=== PATIENT | female | born 2000 | race African-American/Black ===

== ENCOUNTER 2024-03-24 10:10 | Emergency (ER) | payer OTHER, SELFPAY ==
[2024-03-24] VITALS (9 sets, daily range): BP systolic 105–126; BP diastolic 60–64; PULSE 80–120; RESP 16; TEMP 36.9; O2SAT 85–100; BMI 18.3
[2024-03-24 11:24] LABS: Add Manual Diff / Slide Review NO; Basophils Absolute Auto 0 /uL (0-100); Basophils Percent Auto 0.7 % (0-2); Eosinophils Absolute Auto 0 /uL (0-450); Eosinophils Percent Auto 0.8 % (2-4); Hematocrit 39.1 % (36-46); Hemoglobin 13.1 g/dL (12.0-16.0); Lymphocytes Absolute Auto 1200 /uL (1100-4500); Lymphocytes Percent Auto 24.3 % (25-40); Mean Corpuscular HGB Conc 33.5 % (30-36); Mean Corpuscular Hemoglobin 27.2 PG (26-34); Mean Corpuscular Volume 81.2 fL (80-100); Monocytes Absolute Auto 500 /uL (0-900); Neutrophils Absolute Auto 3200 /uL (1500-7000); Neutrophils Percent Auto 64.2 % (50-75); Platelet Count 284 X10^3/uL (150-400); Red Blood Cell Count 4.82 X10^6/uL (4.0-5.2); Red Cell Distribution Width 12.8 % (11.6-14.8)
[2024-03-24 11:32] LABS: Pregnancy Test Serum,Qual Positive (Negative)
[2024-03-24] MEDS: ONDANSETRON 4 MG/2 ML INJ IV (11:33)
[2024-03-24] MEDS: SODIUM CHLORIDE 0.9% 1,000 ML 1000 ML IV (11:33)
--- NOTE | 2024-03-24 11:33 | DI.US.S_ITS ---
PROCEDURE: US OB <= 14 WEEKS FETUS INDICATIONS: 6 weeks ega with vomiting OUTSIDE/PRIOR DATING DATA: Last menstrual period (LMP): February 10, 2024. LMP-based estimated date of delivery (TIAGO): November 16, 2024. First dating scan (date and location): March 24, 2024. Estimated date of delivery (TIAGO) from first dating scan: November 16, 2024. The calculations are made using the ultrasound TIAGO of November 16, 2024. TECHNIQUE: Real-time scanning was performed of the fetus and maternal pelvic organs, with image documentation. Endovaginal scanning was also performed to better visualize the fetus and maternal ovaries. COMPARISON: None. FINDINGS: Embryo: Single living intrauterine . Gestational sac, yolk sac and pole identified. [place]-rump length measures 0.42 centimeters. Heart rate: 112 beats per minute Maternal organs: There is 3.7 x 3.3 x 3.2 centimeters simple right ovarian cyst. There is a 1.2 x 2.3 x 1.8 centimeter complex right ovarian cyst with internal debris. IMPRESSION: Single living intrauterine with ultrasound estimated gestational age of 6 weeks 1 day corresponding to ultrasound TIAGO of November 16, 2024. 3.7 x 3.3 x 3.2 simple right ovarian cyst and 1.2 x 2.3 x 1.8 centimeter complex right ovarian cyst. Recommend follow-up ultrasound in 6 weeks to ensure resolution of the finding. Dictated by: Leann Rodriguez MD, PhD on 03/24/2024 at 12:59 Approved by: Leann Rodriguez MD, PhD on 03/24/2024 at 13:03
[2024-03-24 11:34] LABS: Alanine Aminotransferase 29 IU/L (<35); Albumin 4.5 g/dL (3.5-5.0); Albumin Globulin Ratio 1.1 (1.0-2.8); Alkaline Phosphatase 50 U/L (38-126); Aspartate Aminotransferase 27 IU/L (14-36); BUN Creatinine Ratio 10.7 (6-22); Bilirubin Total 1.2 mg/dL (0.2-1.3); Blood Urea Nitrogen 6 mg/dL (7-17); Calcium 9.5 mg/dL (8.4-10.2); Carbon Dioxide 24 mmol/L (22-32); Chloride 104 mmol/L (98-107); Estimated Glomerular Filt Rate > 60 mL/min (>60); Glucose 87 mg/dL (70-100); HEMOLYSIS < 15 (0-50); Lipase 65 U/L (23-300); Potassium 3.6 mmol/L (3.4-5.1); Sodium 136 mmol/L (137-145); Total Protein 8.5 g/dL (6.3-8.2)
--- NOTE | 2024-03-24 11:39 | ED_ITS ---
HPI - Nausea/Vomiting/Diarrhea General Chief complaint: Nausea/Vomiting/Diarrhea Stated complaint: can't keep anything down for last 3 days Time Seen by Provider: 03/24/24 10:32 Source: patient Mode of arrival: Ambulatory History of Present Illness HPI Narrative: Patient is a 24-year-old female. at approximately 6 weeks EGA who is here for evaluation of vomiting for the past 3 days. No vaginal bleeding. No vaginal discharge. No abdominal pain. No diarrhea. No recent travel. No recent antibiotics. No fevers. No chest pain. No shortness of breath. Has not tried anything for the symptoms prior to arrival. Related Data Home Medications Medication Instructions Recorded Confirmed cholecalciferol (vitamin D3) 50 50 mcg PO DAILY 03/10/24 03/10/24 mcg (2,000 unit) capsule omega 3-ilw-pnl-fish oil 1,200 mg cap PO 03/10/24 03/10/24 (144 mg-216 mg) capsule (Fish Oil) vitamin-ferrous sulfate tab PO 03/10/24 03/10/24 27 mg iron-folic acid 0.8 mg tablet Previous Rx's Medication Instructions Recorded ondansetron 4 mg disintegrating 4 mg PO Q6H PRN nausea and 03/24/24 tablet vomiting #20 tabs Allergies Allergy/AdvReac Type Severity Reaction Status Date / Time No Known Drug Allergies Allergy Unverified 03/10/24 09:34 Review of Systems Review of Systems Narrative: See HPI Patient History Surgical History (Updated 03/10/24 @ 09:37 by Erica Hager RN) [place] teeth extracted (~2022) Family History (Updated 03/10/24 @ 09:38 by Erica Hager RN) Mother Thyroid disorder Grandfather Diabetes mellitus Grandmother Hypertension Hyperlipidemia Diabetes mellitus Social History marital status: number of children: 0 household members: spouse lives independently: Yes caregiver/support person: No housing: apartment pets and animals: Yes (cat, aware of precautions) education level: college 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: Yes (discussed) special phong needs: No travel history: recent (domestic only) seatbelt use: always water heater temp set < 120 deg: Yes working smoke detector in home: Yes fire extinguisher in home: Yes carbon monox detector in home: Yes firearms in home: Yes firearms unloaded and locked: Yes do you feel safe at home: Yes Smoking Status: Never smoker second hand exposure: No alcohol intake: former (very occasionally when not ) substance use type: does not use during the past year weight has: remained stable well-balanced diet: about half the time daily servings fruits/ve-4 caffeine: Yes (aware of 200mg limit) Type(s) of exercise: none Smoking Status: Never smoker Exam Initial Vital Signs Initial Vital Signs: Vital Signs Temperature 98.4 F 03/24/24 10:51 Pulse Rate 89 03/24/24 10:51 Respiratory Rate 16 03/24/24 10:51 Blood Pressure 126/64 03/24/24 10:51 Pulse Oximetry 100 03/24/24 10:51 Oxygen Delivery Method Room Air 03/24/24 10:51 Const General: cooperative, comfortable and No ill appearing HENMT Head: normal to inspection and normocephalic Resp Effort & Inspection: normal respiratory effort Auscultation: clear to auscultation bilaterally Cardio Rate: regular rate Rhythm: regular rhythm GI Inspection: normal to inspection and non-distended Skin General: no rashes or lesions noted Neuro General: patient alert and patient awake Course Orders Ordered: ED Orders 03/24/24 11:15 ABO RH Type Stat Complete Blood Count AUTO DIFF Stat Comprehensive Metabolic Panel Stat HCG Quantitative /Beta subunit Stat Lipase Stat Test Serum,Qual Stat 03/24/24 11:33 US OB <= 14 weeks fetus Stat Discontinued Medications Sodium Chloride (Normal Saline 0.9%) 1,000 mls @ 1,000 mls/hr IV BOLUS ONE Stop: 03/24/24 11:32 Last Infusion: 03/24/24 13:16 Dose: Infused Documented By: Admin: 03/24/24 11:33 Dose: 1,000 mls/hr Documented By: BHARATI Ondansetron HCl (Ondansetron 4 Mg/2 Ml Inj) 4 mg IV NOW ONE Stop: 03/24/24 10:34 Last Admin: 03/24/24 11:33 Dose: 4 mg Documented By: BHARATI Vital Signs Vital signs: Vital Signs - 8 hr 03/24/24 10:51 03/24/24 11:38 03/24/24 11:39 Temperature 98.4 F Pulse Rate 89 80 83 Respiratory Rate 16 Blood Pressure 126/64 Pulse Oximetry 100 97 100 Oxygen Delivery Method Room Air 03/24/24 11:39 03/24/24 11:45 03/24/24 11:45 Temperature Pulse Rate 100 H Respiratory Rate Blood Pressure 110/64 108/60 Pulse Oximetry 100 Oxygen Delivery Method 03/24/24 12:00 03/24/24 12:00 03/24/24 12:15 Temperature Pulse Rate 82 100 H Respiratory Rate Blood Pressure 105/63 Pulse Oximetry 100 96 Oxygen Delivery Method 03/24/24 12:15 03/24/24 12:30 Temperature Pulse Rate 120 H Respiratory Rate Blood Pressure 107/64 Pulse Oximetry 97 Oxygen Delivery Method MDM - Nausea/Vomiting/Diarrhea Lab Data Attestation: I reviewed the patient's lab results. 03/24/24 11:15 03/24/24 11:15 Labs: Lab Results 03/24/24 Range/Units 11:15 WBC 5.0 (4.5-11.0) X10^3/uL RBC 4.82 (4.0-5.2) X10^6/uL Hgb 13.1 (12.0-16.0) g/dL Hct 39.1 (36-46) % MCV 81.2 (80-100) fL MCH 27.2 (26-34) PG MCHC 33.5 (30-36) % RDW 12.8 (11.6-14.8) % Plt Count 284 (150-400) X10^3/uL Neut % (Auto) 64.2 (50-75) % Lymph % (Auto) 24.3 L (25-40) % [place]icher % (Auto) 10.0 (3-14) % Eos % (Auto) 0.8 L (2-4) % Baso % (Auto) 0.7 (0-2) % Neut # (Auto) 3200 (6877-9110) /uL Lymph # (Auto) 1200 (7819-2708) /uL Schleicher # (Auto) 500 (0-900) /uL Eos # (Auto) 0 (0-450) /uL Baso # (Auto) 0 (0-100) /uL Sodium 136 L (137-145) mmol/L Potassium 3.6 (3.4-5.1) mmol/L Chloride 104 (98-107) mmol/L Carbon Dioxide 24 (22-32) mmol/L BUN 6 L (7-17) mg/dL Creatinine 0.56 (0.52-1.04) mg/dL Estimated GFR > 60 (>60) mL/min BUN/Creatinine Ratio 10.7 (6-22) Glucose 87 (70-100) mg/dL Calcium 9.5 (8.4-10.2) mg/dL Total Bilirubin 1.2 (0.2-1.3) mg/dL AST 27 (14-36) IU/L ALT 29 (<35) IU/L Alkaline Phosphatase 50 (38-126) U/L Total Protein 8.5 H (6.3-8.2) g/dL Albumin 4.5 (3.5-5.0) g/dL Globulin 4.0 (1.7-4.1) g/dL Albumin/Globulin Ratio 1.1 (1.0-2.8) Lipase 65 (23-300) U/L HCG, Quant 10074 mIU/mL Serum , Qual Positive H (Negative) Blood Type A Positive Imaging Data US - OB: Radiologist's Impression: PROCEDURE: US OB <= 14 WEEKS FETUS INDICATIONS: 6 weeks ega with vomiting OUTSIDE/PRIOR DATING DATA: Last menstrual period (LMP): February 10, 2024. LMP-based estimated date of delivery (TIAGO): November 16, 2024. First dating scan (date and location): March 24, 2024. Estimated date of delivery (TIAGO) from first dating scan: November 16, 2024. The calculations are made using the ultrasound TIAGO of November 16, 2024. TECHNIQUE: Real-time scanning was performed of the fetus and maternal pelvic organs, with image documentation. Endovaginal scanning was also performed to better visualize the fetus and maternal ovaries. COMPARISON: None. FINDINGS: Embryo: Single living intrauterine . Gestational sac, yolk sac and pole identified. [place]-rump length measures 0.42 centimeters. Heart rate: 112 beats per minute Maternal organs: There is 3.7 x 3.3 x 3.2 centimeters simple right ovarian cyst. There is a 1.2 x 2.3 x 1.8 centimeter complex right ovarian cyst with internal debris. IMPRESSION: Single living intrauterine with ultrasound estimated gestational age of 6 weeks 1 day corresponding to ultrasound TIAGO of November 16, 2024. 3.7 x 3.3 x 3.2 simple right ovarian cyst and 1.2 x 2.3 x 1.8 centimeter complex right ovarian cyst. Recommend follow-up ultrasound in 6 weeks to ensure resolution of the finding. MDM Narrative Medical decision making narrative: Ultrasound shows single intrauterine at 6 weeks which is what the patient thinks that she was at. She was feeling better after Zofran and fluids. Will send home with a prescription for Zofran. She was given return precautions. She expressed understanding and agreement. Discharge Plan Departure Patient Disposition: Home Clinical Impression: Nausea and vomiting during Instructions: Nausea of (Alternative Therapy), Nausea and Vomiting- Adult Activity Restrictions/Additional Instructions: Be sure that you are keeping all of your scheduled medical appointments. Continue with your vitamins. Recommend a bland diet that you can advance as tolerated. Be sure that you were increasing your fluid intake. Return to the emergency department for new or worsening symptoms. Prescriptions: New ondansetron 4 mg tablet,disintegrating 4 mg PO Q6H PRN (Reason: nausea and vomiting) Qty: 20 0RF No Action vit-ferrous sulfat-FA 27 mg iron- 0.8 mg tablet PO cholecalciferol (vitamin D3) 50 mcg (2,000 unit) capsule 50 mcg PO DAILY omega 0-pbh-vzu-fish oil [Fish Oil] 1,200 (144-216) mg capsule PO Referrals: Norah Davis FNP-C [Primary Care Provider] - Stand Alone Forms: Patient Portal/API
[2024-03-24 12:26] LABS: HCG Quantitative /Beta subunit 45025 mIU/mL
== END 2024-03-24 13:30 | disposition home or self-care (01) ==
PROVIDERS: Emergency Provider Emergency Medicine; PCP Nurse Practitioner Family
DX: O21.9 Vomiting of pregnancy, unspecified (principal); Z3A.01 Less than 8 weeks gestation of pregnancy
CPT/HCPCS: 36415; 76801; 80053; 83690; 84702; 84703; 85025; 86900; 86901; 96361; 96374; 99284; J2405

== ENCOUNTER → 2024-04-27 14:56 | Outpatient (CLI) | payer OTHER, SELFPAY ==
[2024-04-27 15:40] LABS: Add Manual Diff / Slide Review NO; Basophils Absolute Auto 0 /uL (0-100); Basophils Percent Auto 0.6 % (0-2); Eosinophils Absolute Auto 100 /uL (0-450); Eosinophils Percent Auto 1.6 % (2-4); Hematocrit 36.5 % (36-46); Hemoglobin 12.1 g/dL (12.0-16.0); Lymphocytes Absolute Auto 1400 /uL (1100-4500); Lymphocytes Percent Auto 26.1 % (25-40); Mean Corpuscular HGB Conc 33.3 % (30-36); Mean Corpuscular Hemoglobin 27.5 PG (26-34); Mean Corpuscular Volume 82.6 fL (80-100); Monocytes Absolute Auto 700 /uL (0-900); Monocytes Percent Auto 12.6 % (3-14); Neutrophils Absolute Auto 3200 /uL (1500-7000); Neutrophils Percent Auto 59.1 % (50-75); Platelet Count 280 X10^3/uL (150-400); Red Blood Cell Count 4.41 X10^6/uL (4.0-5.2); Red Cell Distribution Width 12.5 % (11.6-14.8); White Blood Cell Count 5.4 X10^3/uL (4.5-11.0)
[2024-04-27 17:47] LABS: Appearance Urine UA CLEAR; Bilirubin Urine UA NEGATIVE (NEGATIVE); Color Urine UA YELLOW; Glucose Urine UA NEGATIVE (Negative); Ketones Urine UA NEGATIVE (NEGATIVE); Leukocyte Esterase Urine UA TRACE (NEGATIVE); Nitrite Urine UA NEGATIVE (Negative); Occult Blood Urine UA NEGATIVE (Negative); Protein Urine UA NEGATIVE (Negative); Specific Gravity Urine UA 1.025 (1.000-1.035); Urobilinogen Urine UA 0.2 E.U./dL (0.2)
[2024-04-27 19:13] LABS: Bacteria Urine Few (2-10); RBC Urine None Seen (0-5/HPF); Squamous Epithelial Cell Urine 1-5 /HPF (0-5/HPF); Urine Volume 10mL (spun); WBC Urine 5-10/HPF (0-5/HPF)
[2024-04-28 21:32] LABS: Hepatitis B Surface Antigen NEGATIVE s/c (NEGATIVE); Rubella Antibody IgG 23.3 IU/mL (>15)
[2024-04-28 21:49] LABS: HIV 1 & 2 Ab/Ag 4th Gen Combo NEGATIVE (NEGATIVE); Hep C Virus Ab w/Reflex Quant NEGATIVE s/c (NEGATIVE)
[2024-04-29 06:06] LABS: RPR Screen Non Reactive (Non Reactive)
[2024-04-29 08:36] LABS: Varicella IgG Antibody 227 index (Immune >165)
== END ==
LOC: LAB 14:57
PROVIDERS: PCP Nurse Practitioner Family; Referring Provider Family Medicine; Visit Provider Family Medicine
DX: Z34.00 Encounter for supervision of normal first pregnancy, unspecified trimester (principal)
CPT/HCPCS: 36415; 80055; 81003; 81015; 86787; 86803; 86850; 86900; 86901; 87086; 87389

== ENCOUNTER → 2024-06-10 10:43 | Outpatient (CLI) | payer OTHER, SELFPAY ==
[2024-06-13 13:41] LABS: AFP, Serum 51.3 ng/mL (.); Estriol, Free 0.84 ng/mL (.); Inhibin A, Dimeric 147.29 pg/mL (.); Inhibin A, MoM 0.75 (.); Maternal Ethnicity Black (.); Maternal Weight 112 lbs (.); Number of Fetuses No (.); OSBR Risk 1 IN 10000 (.); Results Report (.); Test Results *Screen Negative* (.); hCG, MoM 0.31 (.); hCG, Serum 12260 mIU/mL (.)
== END ==
PROVIDERS: PCP Nurse Practitioner Family; Referring Provider Family Medicine; Visit Provider Family Medicine
DX: Z34.02 Encounter for supervision of normal first pregnancy, second trimester (principal); Z3A.17 17 weeks gestation of pregnancy
CPT/HCPCS: 36415; 82105; 82677; 84702; 86336

== ENCOUNTER → 2024-06-22 16:16 | Outpatient (CLI) | payer OTHER, SELFPAY | PROVIDERS: PCP Nurse Practitioner Family; Referring Provider Internal Medicine; Visit Provider Internal Medicine | DX: Z23 Encounter for immunization (principal) | CPT/HCPCS: 90471; 90656 ==

== ENCOUNTER → 2024-06-23 10:44 | Outpatient (CLI) | payer OTHER, SELFPAY ==
--- NOTE | 2024-06-23 10:45 | DI.US.S_ITS ---
PROCEDURE: US OB >= 14 WEEKS FETUS INDICATIONS: growth OUTSIDE/PRIOR DATING DATA: Last menstrual period (LMP): 02/10/2024 LMP-based estimated date of delivery (TIAGO): 11/16/2024 First dating scan (date and location): 03/24/2024 Estimated date of delivery (TIAGO) from first dating scan: 11/16/2024 The calculations are made using the TIAGO of 11/16/2024 TECHNIQUE: Real-time scanning was performed of the fetus, with image documentation and biometric measurements. Endovaginal scanning: Not performed COMPARISON: [facility], OB <= 14 WEEKS FETUS, 03/24/2024, 12:19. FINDINGS: General: A single living intrauterine gestation is present. Presentation: Breech Placenta: Placental position is anterior, without previa. Amniotic fluid index: 11.4 cm, normal range is 5-24 cm. Single deepest vertical pocket is 3.4 cm. heart rate: 150 beats per minute. Maternal cervical canal: 3.2 cm long. Normal lower limit is 2.5 cm. biometrics: Biparietal diameter: 4.4 cm, 19 weeks 3 days Head circumference: 16.4 cm, 19 weeks 1 day Abdominal circumference: 14.3 cm, 19 weeks 5 days Femur length: 3.1 cm, 19 weeks 4 days Clinically estimated gestational age: 19 weeks 1 day Composite gestational age from present scan: 19 weeks 3 days Estimated weight and percentile: 299 g, 70th percentile Anatomic survey: Neuro: Ventricles are non-dilated at less than 10 mm. Cisterna magna is normal at 3-11 mm. Cerebellum is normal in size and morphology. Nuchal skin fold: Normal at less than 6 mm between 14-21 weeks gestational age. Face: Nose and lips, facial profile are normal. Spine: No evidence for spina bifida. Heart: 4-chambered heart is present, with normal ventricular outflow tracts. Diaphragm: Diaphragm is intact. Stomach: Left-sided stomach is present. Kidneys: No hydronephrosis. Normal is less than 5 mm in 2nd trimester, less than 7 mm in 3rd trimester. Cord: 3-vessel cord has orthotopic insertion. Bladder: Normal in size. Extremities: All 4 extremities identified. IMPRESSION: 1. Single live intrauterine with appropriate interval growth. 2. anatomic survey is within normal limits. Approved by: Breezy Bonilla M.D. on 06/23/2024 at 19:53
== END ==
PROVIDERS: PCP Nurse Practitioner Family; Referring Provider Family Medicine; Visit Provider Family Medicine
DX: Z34.02 Encounter for supervision of normal first pregnancy, second trimester (principal); Z3A.19 19 weeks gestation of pregnancy
CPT/HCPCS: 76811

== ENCOUNTER 2024-07-22 08:14 | Outpatient (CLI) | payer OTHER, SELFPAY ==
[2024-07-22 08:46] LABS: Appearance Urine UA CLEAR; Bilirubin Urine UA NEGATIVE (NEGATIVE); Color Urine UA YELLOW; Glucose Urine UA NEGATIVE (Negative); Ketones Urine UA NEGATIVE (NEGATIVE); Leukocyte Esterase Urine UA 1+ (NEGATIVE); Nitrite Urine UA NEGATIVE (Negative); Occult Blood Urine UA NEGATIVE (Negative); Protein Urine UA NEGATIVE (Negative); Specific Gravity Urine UA 1.015 (1.000-1.035); Urobilinogen Urine UA 0.2 E.U./dL (0.2)
[2024-07-22 08:50] LABS: pH Urine UA 6.5 (4.5-8.0)
[2024-07-22 08:58] LABS: RBC Urine 0-1/HPF (0-5/HPF); Urine Volume 10mL (spun); WBC Urine 5-10/HPF (0-5/HPF)
[2024-07-22 08:59] LABS: Bacteria Urine Few (2-10); Culture Indicated Urine Cult Not Indicated; Squamous Epithelial Cell Urine 10-30 /HPF (0-5/HPF)
--- NOTE | 2024-07-22 08:59 | DI.US.S_ITS ---
PROCEDURE: US RENAL COMPLETE INDICATIONS: right flank pain, r/o stone TECHNIQUE: Real-time scanning was performed of the kidneys and bladder, with image documentation. COMPARISON: None. FINDINGS: Kidneys: Kidneys are normal in size. Right kidney measures 11.4 cm long; left kidney measures 10.5 cm long. Right renal cortical thickness is 2.1 cm; left renal cortical thickness is 1.9 cm. Renal cortical echotexture is normal. Lgbi-[id number] right hydronephrosis. Minimal left pelviectasis. No intrarenal calculi on either side. No perinephric fluid collections. No suspicious solid mass lesions. Bladder: Pre-void bladder volume is 18 mL. Post-void residual was not obtained. Pre-void images demonstrate no intraluminal masses or stones. On pre-void images, neither ureteral jets are noted with color Doppler interrogation. (Of note, ureteral jets may not be detectable in up to 25% of cases due to insufficient differences in specific gravity between ureteral and bladder urine). Miscellaneous: No free pelvic fluid. Living intrauterine gestation with a heart rate of 148 beats per minute. IMPRESSION: [id number] right hydronephrosis is most likely due to gravid uterus. An obstructing ureteral calculus cannot be excluded. Dictated by: Allison Winkler M.D. on 07/22/2024 at 11:50 Approved by: Allison Winkler M.D. on 07/22/2024 at 11:53
[2024-07-22] MEDS: ONDANSETRON 4 MG ODT SL (09:53)
[2024-07-22] MEDS: MORPHINE 4 MG/ML INJ IM (09:53)
== END 2024-07-22 10:00 | disposition home or self-care (01) ==
LOC: LABOR 09:44 → OB 07-25 08:47
PROVIDERS: PCP Nurse Practitioner Family; Referring Provider Family Medicine; Visit Provider Family Medicine
DX: O26.892 Other specified pregnancy related conditions, second trimester (principal); R10.9 Unspecified abdominal pain; Z3A.23 23 weeks gestation of pregnancy
CPT/HCPCS: 59025; 59050; 76770; 81001; 96372; G0378; G0379; J2270

== ENCOUNTER → 2024-09-01 12:01 | Outpatient (CLI) | payer OTHER, SELFPAY ==
[2024-09-01 13:44] LABS: Add Manual Diff / Slide Review NO; Basophils Absolute Auto 0 /uL (0-100); Basophils Percent Auto 0.4 % (0-2); Eosinophils Absolute Auto 100 /uL (0-450); Eosinophils Percent Auto 0.8 % (2-4); Hematocrit 28.8 % (36-46); Hemoglobin 9.5 g/dL (12.0-16.0); Lymphocytes Absolute Auto 1300 /uL (1100-4500); Lymphocytes Percent Auto 18.7 % (25-40); Mean Corpuscular HGB Conc 33.1 % (30-36); Mean Corpuscular Hemoglobin 27.8 PG (26-34); Mean Corpuscular Volume 84.1 fL (80-100); Monocytes Absolute Auto 800 /uL (0-900); Monocytes Percent Auto 11.8 % (3-14); Neutrophils Absolute Auto 4800 /uL (1500-7000); Neutrophils Percent Auto 68.3 % (50-75); Platelet Count 268 X10^3/uL (150-400); Red Blood Cell Count 3.42 X10^6/uL (4.0-5.2); Red Cell Distribution Width 12.3 % (11.6-14.8)
[2024-09-01 14:08] LABS: GTT (PREG) 1 Hour PP 50gm Dose 89 mg/dL (76-139)
== END ==
LOC: LAB 12:02
PROVIDERS: PCP Nurse Practitioner Family; Referring Provider Family Medicine; Visit Provider Family Medicine
DX: Z34.00 Encounter for supervision of normal first pregnancy, unspecified trimester (principal)
CPT/HCPCS: 36415; 82950; 85025

== ENCOUNTER 2024-09-12 07:36 | Outpatient (CLI) | payer OTHER, SELFPAY ==
[2024-09-12 08:16] LABS: Appearance Urine UA CLEAR; Bilirubin Urine UA NEGATIVE (NEGATIVE); Color Urine UA YELLOW; Glucose Urine UA NEGATIVE (Negative); Ketones Urine UA NEGATIVE (NEGATIVE); Leukocyte Esterase Urine UA NEGATIVE (NEGATIVE); Nitrite Urine UA NEGATIVE (Negative); Occult Blood Urine UA NEGATIVE (Negative); Protein Urine UA NEGATIVE (Negative); Specific Gravity Urine UA <=1.005 (1.000-1.035); Urobilinogen Urine UA 0.2 E.U./dL (0.2)
[2024-09-12 08:19] LABS: Urine Volume 10mL (spun)
[2024-09-12 08:20] LABS: Bacteria Urine None Seen; Culture Indicated Urine Cult Not Indicated; RBC Urine None Seen (0-5/HPF); Squamous Epithelial Cell Urine 1-5 /HPF (0-5/HPF); WBC Urine None Seen (0-5/HPF)
--- NOTE | 2024-09-12 08:20 | DI.US.S_ITS ---
PROCEDURE: US OB LIMITED INDICATIONS: contractions OUTSIDE/PRIOR DATING DATA: Last menstrual period (LMP): 02/10/2024 LMP-based estimated date of delivery (TIAGO): 11/16/2024 First dating scan (date and location): 03/24/2024 Estimated date of delivery (TIAGO) from first dating scan: 11/16/2024. The calculations are made using the working TIAGO of 11/16/2024. TECHNIQUE: Real-time scanning was performed of the fetus, with image documentation and biometric measurements. Endovaginal scanning: Not performed COMPARISON: None. FINDINGS: General: A single living intrauterine gestation is present. Presentation: Vertex Placenta: Placental position is anterior, without previa. Amniotic fluid index: 15.1 cm, normal range is 5-24 cm. Single deepest vertical pocket is 5.2 cm. heart rate: 133 beats per minute. Maternal cervical canal: 3.4 cm long. Normal lower limit is 2.5 cm. biometrics: Biparietal diameter: 7.8 cm, 31 weeks, 3 days. Head circumference: 28.9 cm, 31 weeks, 6 days. Abdominal circumference: 29.0 cm, 33 weeks, 0 day. Femur length: 6.0 cm, 31 weeks, 0 day. Clinically estimated gestational age: 30 weeks, 5 days Composite gestational age from present scan: 31 weeks, 6 days Estimated weight and percentile: 1913 g, 84% IMPRESSION: 1. Single live intrauterine gestation with fetus in vertex presentation. heart rate is 133 beats per minute. Normal JUAN MANUEL at 15.1 cm. Cervix is closed and measures 3.4 cm in length. 2. Normal growth. Estimated weight is at 84%. We strive to produce accurate, complete, and clear reports of imaging services. To assist us in improving patient care, this report was composed using standard report templates and voice recognition software. Therefore, it may contain abnormal punctuation, insertions and/or omissions. Occasional wrong-word or sound-alike substitutions may occur. Though we review the report and make efforts to correct it, we do recommend that the report be read carefully in proper context to recognize any text inaccuracies. Dictated by: Mat Blunt M.D. on 09/12/2024 at 9:46 Approved by: Mat Blunt M.D. on 09/12/2024 at 9:59
--- NOTE | 2024-09-12 08:26 | P.TNLD_ITS ---
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 The pt denies any vaginal bleeding or LOF. She is feeling her baby move regularly. She was able to hydrate well while working. 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: Yes (discussed) special phong needs: No travel history: recent (domestic only) seatbelt use: always water heater temp set < 120 deg: Yes working smoke detector in home: Yes fire extinguisher in home: Yes carbon monox detector in home: Yes firearms in home: Yes firearms unloaded and locked: Yes do you feel safe at home: Yes Smoking Status: Never smoker second hand exposure: No alcohol intake: former (very occasionally when not ) substance use type: does not use during the past year weight has: remained stable well-balanced diet: about half the time daily servings fruits/ve-4 caffeine: Yes (aware of 200mg limit) Type(s) of exercise: none Objective Labs Labs: Laboratory Results - last 24 hr 09/12/24 07:49 Urine Color Yellow Urine Appearance Clear Urine pH 6.0 Ur Specific [place] <=1.005 Urine Protein Negative Urine Glucose (UA) Negative Urine Ketones Negative Urine Occult Blood Negative Urine Nitrate Negative Urine Bilirubin Negative Urine Urobilinogen 0.2 Ur Leukocyte Esterase Negative Urine RBC None seen Urine WBC None seen Ur Squamous Epith Cells 1-5 /hpf D Urine Bacteria None seen Ur Culture Indicated? 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 Uterine irritability on TOCO. NST reactive. Cervical length 3.4 not concerning at this time. U/A without UTI. Stable for discharge home with instructions to rest and hydrate. If cramping not resolving, will let us know and can consider Nifedipine. OB Disposition: home
== END 2024-09-12 08:58 | disposition home or self-care (01) ==
LOC: LABOR 09:06 → OB 09-14 09:32
PROVIDERS: PCP Nurse Practitioner Family; Referring Provider Family Medicine; Visit Provider Family Medicine
DX: O26.893 Other specified pregnancy related conditions, third trimester (principal); N85.8 Other specified noninflammatory disorders of uterus; Z3A.30 30 weeks gestation of pregnancy
CPT/HCPCS: 59025; 76815; 81001; G0378; G0379

== ENCOUNTER 2024-09-13 22:47 | Observation (INO) | payer OTHER, SELFPAY ==
[2024-09-13 23:35] LABS: Color Urine UA Yellow
[2024-09-13 23:36] LABS: Appearance Urine UA Slightly Cloudy; Glucose Urine UA NEGATIVE (Negative); Ketones Urine UA TRACE (NEGATIVE); Nitrite Urine UA NEGATIVE (Negative); Occult Blood Urine UA NEGATIVE (Negative); Protein Urine UA NEGATIVE (Negative)
[2024-09-13 23:37] LABS: Bacteria Urine Few (2-10); Bilirubin Urine UA NEGATIVE (NEGATIVE); Culture Indicated Urine Cult Not Indicated; Leukocyte Esterase Urine UA TRACE (NEGATIVE); RBC Urine 0-1/HPF (0-5/HPF); Squamous Epithelial Cell Urine 10-30 /HPF (0-5/HPF); Urine Volume 10mL (spun); Urobilinogen Urine UA 0.2 E.U./dL (0.2); WBC Urine 0-1/HPF (0-5/HPF)
[2024-09-13] MEDS: NIFEdipine 10 MG CAPSULE PO (23:54)
[2024-09-13] MEDS: OXYCODONE IR 5 MG TABLET PO (23:54)
[2024-09-13] MEDS: ACETAMINOPHEN 325 MG TABLET 650 MG PO (23:55)
[2024-09-14] MEDS: NIFEdipine 10 MG CAPSULE PO ×3 (00:14→00:54)
[2024-09-14] MEDS: OXYCODONE IR 5 MG TABLET PO (05:55)
--- NOTE | 2024-09-14 07:19 | P.TNLD_ITS ---
Visit Information Visit Information Date of evaluation: 09/14/24 Primary OB Provider: Nicolle Phillip On-call OB Provider: Geovanni Tracy Reason for Evaluation: Yes other Comments/Additional reasons for admission: Ada is a petite primigravida currently at 31+0 wks gestational age who has been struggling with left-sided lower rib pain for the last 2 weeks. These episodes occur with certain movements such as leaning forward or twisting to her right with sudden onset of severe pain which she rates as an 8/10. 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 In addition when she presented for evaluation, she was having significant uterine irritability which was easily suppressed with hydration and nifedipine 10 mg p.o. every 20 minutes x4 doses. In addition she was medicated with oral oxycodone 5 mg every 4 hours and Tylenol 975 mg every 6 hours. She has experienced significant relief overnight with bedrest, oral analgesics, and currently rates her pain as 2/10. Her uterine irritability is markedly improved as well. Her most recent obstetrical ultrasound performed 09/12/2024 shows the to be at the 84th percentile insofar as estimated weight. 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 Vital Signs Vital Signs: BP: 102/56 P: 102 R: 18 T: 97.4F [facility] Surgical History [place] teeth extracted (~2022) Family History Mother Thyroid disorder Grandfather Diabetes mellitus Grandmother Hypertension Hyperlipidemia Diabetes mellitus Social History marital status: number of children: 0 household members: spouse lives independently: Yes caregiver/support person: No housing: apartment pets and animals: Yes (cat, aware of precautions) education level: college 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: Yes (discussed) special phong needs: No travel history: recent (domestic only) seatbelt use: always water heater temp set < 120 deg: Yes working smoke detector in home: Yes fire extinguisher in home: Yes carbon monox detector in home: Yes firearms in home: Yes firearms unloaded and locked: Yes do you feel safe at home: Yes Smoking Status: Never smoker second hand exposure: No alcohol intake: former (very occasionally when not ) substance use type: does not use during the past year weight has: remained stable well-balanced diet: about half the time daily servings fruits/ve-4 caffeine: Yes (aware of 200mg limit) Type(s) of exercise: none Review of Systems Review of Systems Narrative: Problem-specific ROS positives included in HPI Exam Const General: cooperative and healthy appearing Nutritional Appearance: thin Orientation: alert HENMT Head: normal to inspection, normocephalic and atraumatic Eyes General: appearance normal, both eyes and all related structures Resp Effort & Inspection: normal respiratory effort and able to speak in complete sentences GI Inspection: normal to inspection Palpation: soft, no hepatosplenomegaly and tender (Marked tenderness of left 9th+10th ribs in ant axillary line) Uterus Location (Fundal Height): 31 Estimated Weight (lbs): 4 Objective Imaging OB US 09/12/24: Radiologist's impression: PROCEDURE: US OB LIMITED INDICATIONS: contractions OUTSIDE/PRIOR DATING DATA: Last menstrual period (LMP): 02/10/2024 LMP-based estimated date of delivery (TIAGO): 11/16/2024 First dating scan (date and location): 03/24/2024 Estimated date of delivery (TIAGO) from first dating scan: 11/16/2024. The calculations are made using the working TIAGO of 11/16/2024. TECHNIQUE: Real-time scanning was performed of the fetus, with image documentation and biometric measurements. Endovaginal scanning: Not performed COMPARISON: None. FINDINGS: General: A single living intrauterine gestation is present. Presentation: Vertex Placenta: Placental position is anterior, without previa. Amniotic fluid index: 15.1 cm, normal range is 5-24 cm. Single deepest vertical pocket is 5.2 cm. heart rate: 133 beats per minute. Maternal cervical canal: 3.4 cm long. Normal lower limit is 2.5 cm. biometrics: Biparietal diameter: 7.8 cm, 31 weeks, 3 days. Head circumference: 28.9 cm, 31 weeks, 6 days. Abdominal circumference: 29.0 cm, 33 weeks, 0 day. Femur length: 6.0 cm, 31 weeks, 0 day. Clinically estimated gestational age: 30 weeks, 5 days Composite gestational age from present scan: 31 weeks, 6 days Estimated weight and percentile: 1913 g, 84% IMPRESSION: 1. Single live intrauterine gestation with fetus in vertex presentation. heart rate is 133 beats per minute. Normal JUAN MANUEL at 15.1 cm. Cervix is closed and measures 3.4 cm in length. 2. Normal growth. Estimated weight is at 84%. Labs Labs: Laboratory Results - last 24 hr 09/13/24 23:15 Urine Color Yellow Urine Appearance Slightly cloudy Urine pH 6.0 Ur Specific [place] 1.020 Urine Protein Negative Urine Glucose (UA) Negative Urine Ketones Trace H Urine Occult Blood Negative Urine Nitrate Negative Urine Bilirubin Negative Urine Urobilinogen 0.2 Ur Leukocyte Esterase Trace H Urine RBC 0-1/hpf Urine WBC 0-1/hpf Ur Squamous Epith Cells 10-30 /hpf H D Urine Bacteria Few (2-10) H Ur Culture Indicated? Cult not indicated Vol Urine Centrifuged 10ml (spun) Evaluation Evaluation Baseline heart rate: 125 Variability: Average (6-10) monitor accelerations: Present Monitor Decelerations: Absent Contraction Frequency (minutes): 6 Uterine Contraction Intensity: Mild Category of Tracing: Reactive Status: Category l Diagnosis, Plan/Disposition Final Diagnosis (1) Uterine irritability: Status: Acute (2) Slipping rib syndrome: Status: Acute Plan/Disposition Plan: Oral Nifedipine tocolysis has markedly reduced her uterine irritability overnight. Oral analgesic therapy has significantly improved her left-sided rib. Given the level of pain the patient is experiencing particularly during activities/work, consideration may be given to placing the patient in temporary disability status for the duration of her . Will discuss further with her primary obstetrical caregiver, Dr. Nicolle Phillip who will make the ultimate decision insofar as evaluation/management going forward. OB Disposition: other (Observation status with probable discharge later today)
[2024-09-14] MEDS: LACTATED RINGERS 1,000 ML 1000 ML IV (08:54)
[2024-09-14] MEDS: NIFEdipine 30 MG TAB ER PO (08:58)
[2024-09-14] MEDS: polyethylene glycoL 3350 17 GM POWD.PACK PO (10:27)
[2024-09-14] MEDS: ACETAMINOPHEN 325 MG TABLET 650 MG PO (12:09)
== END 2024-09-14 13:41 | disposition home or self-care (01) ==
PROVIDERS: Admitting Provider Obstetrics & Gynecology; PCP Nurse Practitioner Family; Referring Provider Obstetrics & Gynecology; Visit Provider Obstetrics & Gynecology
DX: O26.893 Other specified pregnancy related conditions, third trimester (principal); N85.8 Other specified noninflammatory disorders of uterus; M89.8X8 Other specified disorders of bone, other site; Z3A.31 31 weeks gestation of pregnancy
CPT/HCPCS: 36415; 59025; 59050; 81001; 96360; 96361; 99233; G0378; G0379

== ENCOUNTER → 2024-10-14 10:38 | Outpatient (CLI) | payer OTHER, SELFPAY ==
[2024-10-15 12:34] LABS: Strep Grp B PCR NEG for Grp B Strep
== END ==
PROVIDERS: PCP Nurse Practitioner Family; Visit Provider Family Medicine
DX: Z34.00 Encounter for supervision of normal first pregnancy, unspecified trimester (principal)
CPT/HCPCS: 87653

== ENCOUNTER 2024-10-17 14:05 | Outpatient (CLI) | payer OTHER, SELFPAY ==
--- NOTE | 2024-10-17 14:35 | PM.OBTRLD ---
Visit Information Visit Information Date of evaluation: 10/17/24 Primary OB Provider: Nicolle Phillip Comments/Additional reasons for admission: 24yo at 35w5d here due to contractions. Pt reports contractions starting in the night, increasing in frequency since then. No vaginal bleeding. No significant LOF. She is feeling her baby move regularly. 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: Yes (discussed) special phong needs: No travel history: recent (domestic only) seatbelt use: always water heater temp set < 120 deg: Yes working smoke detector in home: Yes fire extinguisher in home: Yes carbon monox detector in home: Yes firearms in home: Yes firearms unloaded and locked: Yes do you feel safe at home: Yes Smoking Status: Never smoker second hand exposure: No alcohol intake: former (very occasionally when not ) substance use type: does not use during the past year weight has: remained stable well-balanced diet: about half the time daily servings fruits/ve-4 caffeine: Yes (aware of 200mg limit) Type(s) of exercise: none Evaluation Evaluation Baseline heart rate: 135 Variability: Moderate (11-25) monitor accelerations: Present Monitor Decelerations: Absent Category of Tracing: Reactive Cervical dilation (cm): 1 Cervical effacement (%): 50 station: -2 Comments: uterine irritability Diagnosis, Plan/Disposition Final Diagnosis (1) False labor: Status: Acute Plan/Disposition Plan: 24yo at 35w5d here due to contractions. No significant cervical change. Uterine irritability but no distinct contractions on monitoring. Safe for d/c home. Return precautions discussed. OB Disposition: home
[2024-10-17 15:09] LABS: Appearance Urine UA CLEAR; Bilirubin Urine UA NEGATIVE (NEGATIVE); Color Urine UA YELLOW; Glucose Urine UA NEGATIVE (Negative); Ketones Urine UA NEGATIVE (NEGATIVE); Leukocyte Esterase Urine UA NEGATIVE (NEGATIVE); Nitrite Urine UA NEGATIVE (Negative); Occult Blood Urine UA NEGATIVE (Negative); Protein Urine UA NEGATIVE (Negative); Urobilinogen Urine UA 0.2 E.U./dL (0.2)
[2024-10-17 15:12] LABS: pH Urine UA 6.5 (4.5-8.0)
[2024-10-17 15:17] LABS: Bacteria Urine Few (2-10); RBC Urine None Seen (0-5/HPF); Squamous Epithelial Cell Urine 5-10 /HPF (0-5/HPF); Urine Volume 10mL (spun); WBC Urine 5-10/HPF (0-5/HPF)
[2024-10-17 15:18] LABS: Amorphous Sediment Urine 1+; Culture Indicated Urine Specimen Cultured
== END 2024-10-17 14:49 | disposition home or self-care (01) ==
LOC: LABOR 14:49 → OB 10-18 10:33
PROVIDERS: PCP Nurse Practitioner Family; Referring Provider Family Medicine; Visit Provider Family Medicine
DX: O47.03 False labor before 37 completed weeks of gestation, third trimester (principal); Z3A.35 35 weeks gestation of pregnancy
CPT/HCPCS: 59025; 81001; 87086; G0378; G0379

== ENCOUNTER 2024-10-24 00:37 | Inpatient (IN) | payer OTHER, SELFPAY ==
[2024-10-24] MEDS: hydrOXYzine 50 MG/ML INJ 25 MG IM (01:20)
[2024-10-24] MEDS: MORPHINE 4 MG/ML INJ IM (01:20)
[2024-10-24] MEDS: LACTATED RINGERS 1,000 ML 1000 ML IV ×2 (01:25→02:30)
[2024-10-24] MEDS: TERBUTALINE 1 MG/ML VIAL 0.25 MG SUBCUT (04:13)
[2024-10-24 09:34] LABS: Hematocrit 29.2 % (36-46); Hemoglobin 9.5 g/dL (12.0-16.0); Mean Corpuscular HGB Conc 32.4 % (30-36); Mean Corpuscular Hemoglobin 26.4 PG (26-34); Mean Corpuscular Volume 81.6 fL (80-100); Platelet Count 300 X10^3/uL (150-400); Red Blood Cell Count 3.58 X10^6/uL (4.0-5.2); Red Cell Distribution Width 14.4 % (11.6-14.8); White Blood Cell Count 7.4 X10^3/uL (4.5-11.0)
[2024-10-24 09:35] LABS: Add Manual Diff / Slide Review NO; Basophils Absolute Auto 100 /uL (0-100); Basophils Percent Auto 0.7 % (0-2); Eosinophils Absolute Auto 100 /uL (0-450); Eosinophils Percent Auto 0.9 % (2-4); Lymphocytes Absolute Auto 1700 /uL (1100-4500); Lymphocytes Percent Auto 22.7 % (25-40); Monocytes Absolute Auto 800 /uL (0-900); Monocytes Percent Auto 10.7 % (3-14); Neutrophils Absolute Auto 4800 /uL (1500-7000)
[2024-10-24] MEDS: LACTATED RINGERS 1,000 ML 100 ML IV ×2 (11:14→11:58)
--- NOTE | 2024-10-24 12:01 | PM.AN.REGBLK ---
Regional Block Pre-procedure PMH/ROS narrative: active labor PSH/Anesthesia history narrative: wte - no issues Exam narrative: pt with rib fracture 2/2 otherwise NL ASA Class: II Labs: Hct 29.2 % (36-46) L 10/24/24 01:25 Plt Count 300 X10^3/uL (150-400) 10/24/24 01:25 Medications: Current Medications Generic Name Dose Route Start Last Admin Trade Name Freq PRN Reason Stop Dose Admin Carboprost Tromethamine 250 mcg 10/24/24 09:16 Carboprost 250 Mcg/Ml Ampul IM Q90M PRN Bleeding Lactated Ringer's 1,000 mls @ 100 mls/hr 10/24/24 09:30 10/24/24 11:58 Lactated Ringers IV 10/24/24 19:29 100 mls/hr CONT GILDARDO Administration Oxytocin/Lactated Ringer's 30 unit in 500 mls @ 200 mls/hr 10/24/24 09:16 Oxytocin Premix IV CONT PRN Bleeding Protocol Tranexamic Acid 1,000 mg/ 100 mls @ 600 mls/hr 10/24/24 09:16 Sodium Chloride IV NOW PRN Bleeding Lidocaine HCl 20 ml 10/24/24 09:16 Lidocaine 1% 20 Ml INJ INTRA-OP PRN Post Delivery Methylergonovine Maleate 0.2 mg 10/24/24 09:16 Methylergonovine 0.2 Mg Tablet PO Q6HR PRN Heavy Bleeding Methylergonovine Maleate 0.2 mg 10/24/24 09:16 Methylergonovine 0.2 Mg/Ml Vial IM NOW PRN Bleeding Mineral Oil 30 ml 10/24/24 09:16 Mineral Oil 30 Ml Udc TOP PRN PRN Version Misoprostol 800 mcg 10/24/24 09:16 Misoprostol 200 Mcg Tablet AR NOW PRN Bleeding Misoprostol 400 mcg 10/24/24 09:16 Misoprostol 200 Mcg Tablet SL NOW PRN Bleeding Naloxone HCl 0.2 mg 10/24/24 09:16 Naloxone 0.4 Mg/Ml Vial IV Q2MIN PRN Opiate Reversal Oxytocin 10 unit 10/24/24 09:16 Oxytocin 10 Unit/Ml Vial IM NOW PRN Bleeding Allergies: Allergies Allergy/AdvReac Type Severity Reaction Status Date / Time No Known Drug Allergies Allergy Unverified 10/21/24 10:23 --: preop- see paper chart. pt in sitting position. drape and prep with sterile technique. l3 l4 identified. slight scoliosis noted. L hip slightly lower than right hip. lido 1% 3 cc skin wheel. pt having difficultly holding still. waited 2 minutes for localization of skin. tuohy introduced. pt jumped and felt sharp pain on right side. localized second time. tuohy reintroduced. SHARLA at 5 cm. threaded catheter without issue. aspiration negative prior to test dose. test dose given. v/s/s. patient tegaderm applied sterile. taped patient and patient sitting. at 1211 pain now 110, pt sleeping. Procedure Insertion date: 10/24/24 Insertion time: 11:44 Prep/Local: betadine x3 (chloraprep) and 1% lidocaine Interspace: l3 l4 Patient position: sitting Needle: 17 gauge Tuohy Loss of resistance with: saline SHARLA at (cm): 5 Catheter placed at SKIN (cm): 11 Sensory level: t 10 Insertion: No CSF, No Blood, No Paresthesia with insertion, No Paresthesia with injection and No Test dose reaction Initial Medications TEST DOSE time: 11:44 BOLUS DOSE time: 11:50 BOLUS DOSE (mL): 4 BOLUS DOSE med: other (infusate) Infusion INFUSION: with fentanyl 2 mcg/mL and 0.0625% bupivacaine Initial rate (mL/hr): 9 Subsequent interventions: with PCEA 3. lockout 16. Post-procedure Anesthesia date START: 10/24/24 Anesthesia time START: 11:29
--- NOTE | 2024-10-24 12:05 | PM.OBHP.IH.1 ---
OB HPI Date/Time Date of admission: 10/24/24 Date Patient Seen: 10/24/24 History of Present Condition Chief complaint: Labor TIAGO Calculator Estimated Delivery Date Method Current WG Current Estimate 11/16/24 LMP (Certain) 36w 5d Other Estimates 11/18/24 Ultrasound #1 36w 3d Estimated Gestational Age (weeks): 36w5d : 1 Para: 0 Narrative: Pt is a 24yo at 36w5d here with regular contractions. Pt reports contractions starting the night of 10/22. They intensified to q5min. She was evaluated at [facility] due to [facility] being on divert. She received 500cc of IVF, and due to her cervix not changing from 2cm was discharged home. The pt continued to contract regularly, with them getting even more painful. She came to the hospital here when they were q4min. She denies any vaginal bleeding, LOF. She is feeling her baby move regularly. The pts has been uncomplicated other than pain from slipped rib syndrome. care: good care, initiated at week # (9) and pounds weight gain (20) Dating criteria OB: LMP confirmed by 1st trimester US Ultrasounds: normal 1st trimester US and normal mid trimester US Obstetrical complications: none Medical complications OB: none Preadmission Labs Last OB Lab Results: Blood Type A Positive 10/24/24 11:30 Antibody Screen Negative 10/24/24 11:30 Hct 29.2 % (36-46) L 10/24/24 01:25 Hgb 9.5 g/dL (12.0-16.0) L 10/24/24 01:25 Hep Bs Antigen Negative s/c (NEGATIVE) 04/27/24 15:09 Hepatitis C Antibody Negative s/c (NEGATIVE) 04/27/24 15:09 Rubella Antibody 23.3 IU/mL (>15) 04/27/24 15:09 VZV IgG Antibody 227 index (Immune >165) 04/27/24 15:09 Glucose 1 Hr 50 gm 89 mg/dL (76-139) 09/01/24 13:18 Group B Strep (PCR) Neg for grp b strep 10/14/24 10:40 -: Urine: negative Genetic Screens: Quad screen: Normal External Labs -: Urine: negative Evaluation Evaluation Baseline heart rate: 120 Variability: Moderate (11-25) Monitor Decelerations: Absent Uterine Contraction Intensity: Strong/Firm Status: Category l Dilation (cm): 3 Effacement (%): 80 Dilation: 3-4 cm Effacement: >/=80% station: 0 Position of cervix: anterior Consistency: soft Joel score: 11 PFSH Surgical History [place] teeth extracted (~2022) Family History Mother Thyroid disorder Grandfather Diabetes mellitus Grandmother Hypertension Hyperlipidemia Diabetes mellitus Social History marital status: number of children: 0 household members: spouse lives independently: Yes caregiver/support person: No housing: apartment pets and animals: Yes (cat, aware of precautions) education level: college 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: Yes (discussed) special phong needs: No travel history: recent (domestic only) seatbelt use: always water heater temp set < 120 deg: Yes working smoke detector in home: Yes fire extinguisher in home: Yes carbon monox detector in home: Yes firearms in home: Yes firearms unloaded and locked: Yes do you feel safe at home: Yes Smoking Status: Never smoker second hand exposure: No alcohol intake: former (very occasionally when not ) substance use type: does not use during the past year weight has: remained stable well-balanced diet: about half the time daily servings fruits/ve-4 caffeine: Yes (aware of 200mg limit) Type(s) of exercise: none Meds Home Medications and Allergies Home Medications Medication Instructions Recorded Confirmed Type cholecalciferol (vitamin D3) 50 50 mcg PO DAILY 03/10/24 10/24/24 History mcg (2,000 unit) capsule omega 3-qeu-wzh-fish oil 1,200 mg 1 cap PO 03/10/24 10/21/24 History (144 mg-216 mg) capsule (Fish Oil) vitamin-ferrous sulfate 1 tab PO 03/10/24 10/21/24 History 27 mg iron-folic acid 0.8 mg tablet ondansetron 4 mg disintegrating 4 mg PO Q6H PRN nausea and 04/13/24 10/24/24 Rx tablet vomiting #30 tabs ondansetron 4 mg disintegrating 4 mg PO Q8H PRN nausea and 07/22/24 10/21/24 Rx tablet vomiting #20 tabs Allergies Allergy/AdvReac Type Severity Reaction Status Date / Time No Known Drug Allergies Allergy Unverified 10/21/24 10:23 OB Exam Resp Effort & Inspection: normal respiratory effort Auscultation: clear to auscultation bilaterally Cardio Rate: regular rate Rhythm: regular rhythm Heart Sounds: S1 normal, S2 normal and no murmurs GI Inspection: non-distended Palpation: Yes soft and No tender Presentation: vertex Objective Labs 10/24/24 01:25 Labs: Laboratory Results - last 24 hr 10/24/24 01:25 WBC 7.4 RBC 3.58 L Hgb 9.5 L Hct 29.2 L MCV 81.6 MCH 26.4 MCHC 32.4 RDW 14.4 Plt Count 300 Neut % (Auto) 65.0 Lymph % (Auto) 22.7 L [place] % (Auto) 10.7 Eos % (Auto) 0.9 L Baso % (Auto) 0.7 Neut # (Auto) 4800 Lymph # (Auto) 1700 [place] # (Auto) 800 Eos # (Auto) 100 Baso # (Auto) 100 Assessment and Plan Assessment and Plan Assessment and Plan narrative: 24yo at 36w5d here in prodromal labor. GBS negative, Rh positive. Received morphine and hydroxyzine with minimal relief. 2L IVF did not calm contractions. Pt did not tolerate Nifedipine well earlier in the . Pt given IM Terbutaline, again with minimal response. She remains in significant pain from her contractions. Pt did make minimal cervical change, with some effacement and descent of baby. Will admit. - Expectant management, anticipate - FHT reassuring - GBS negative, no prophylaxis indicated - Epidural for pain control when desired Time-Based Coding :: 60 spent with patient and on the chart (including review of chart, obtaining history, exam, reviewing outside data, placing orders, documenting exam and treatment plan, and counseling patient) on 10/24/24.
[2024-10-24 12:12] VITALS: BP 117/70
[2024-10-24] MEDS: ONDANSETRON 4 MG/2 ML INJ IV (12:29)
[2024-10-24] MEDS: ePHEDrine 50 MG/ML VIAL IV (12:51)
--- NOTE | 2024-10-24 14:00 | PM.OBPNLAB ---
Date/Time Date Patient Seen: 10/24/24 Time Patient Seen: 13:15 Pain Control Pain control: epidural Pelvic Exam Dilation (cm): 3 Effacement (%): 80 station: 0 Amniotic membrane status: Ruptured Contractions Contraction pattern: Irregular Contraction intensity: Strong/Firm Status status: Category l Heart Rate Baseline: 120 Monitor Accelerations: Present Monitor Decelerations: Absent Monitor Variability: Moderate Assessment and Plan Comments: 24yo here in early labor. GBS negative, Rh positive. After informed consent, AROM performed with clear fluid present. - Expectant management, anticipate - FHT reassuring - Epidural in place and functioning well
[2024-10-24] MEDS: OXYTOCIN PREMIX 30 UNIT/500 ML PLAST..BAG IV (15:37)
[2024-10-24] MEDS: FENT 2MCG/ML BUPIV 0.125% EPI 200 MCG/100 ML PLAST..BAG 86 MCG EPIDURAL (19:35)
[2024-10-24] MEDS: LACTATED RINGERS 1,000 ML 75 ML IV (21:18)
--- NOTE | 2024-10-24 21:29 | PM.OBPNLAB ---
Date/Time Date Patient Seen: 10/24/24 Time Patient Seen: 21:29 Pain Control Pain control: epidural Pelvic Exam Dilation (cm): 9.5 Effacement (%): 100 station: +1 Amniotic membrane status: Ruptured Contractions Contraction frequency (min): 3 Contraction pattern: Regular Contraction intensity: Strong/Firm Status status: Category l Heart Rate Baseline: 165 Monitor Accelerations: Absent Monitor Decelerations: Early Monitor Variability: Moderate Assessment and Plan Comments: 24yo at 36w5d here in active labor. GBS negative, Rh positive. AROM with clear fluid approximately 8.5hrs ago, transitioned to thin meconium. Now with tachycardia and maternal fever to 38.4C. - Start Ampicillin and Gentamicin for chorioamnionitis - FHT overall still reassuring, but will continue to monitor closely. Pt with right sided cervial rim, can push past if needed but ideally will allow to fully dilate and more descent prior to pushing. - Epidural working well for pain control
[2024-10-24] MEDS: AMPICILLIN 2,000 MG in SODIUM CHLORIDE 0.9% 100 ML 200 MG IV (21:56)
[2024-10-24] MEDS: ACETAMINOPHEN 325 MG TABLET 975 MG PO (23:27)
[2024-10-25] MEDS: TRANEXAMIC ACID 1,000 MG in SODIUM CHLORIDE 0.9% 100 ML 600 MG IV (01:18)
--- NOTE | 2024-10-25 01:42 | P.PCNOB_ITS ---
Labor & Delivery Delivery date: 10/25/24 Delivery Time: 00:56 Intrapartal Events: Prolonged 2nd Stage > 2.5 hours and Chorioamnionitis Cervical ripening method: none Induction method: none Delivery augmentation: rupture of membranes and pitocin Delivery monitor: external FHT and external uterine Route of delivery: vacuum extraction Indication for instrumentation: maternal exhaustion Episiotomy description: None L&D Laceration Description: Perineal - 2nd Degree Quantitative Blood Loss: 400 Anesthesia Type: Epidural Complications: Chorioamnionitis Narrative: PROCEDURE: at 36w5d presented in active labor and was admitted to Labor and Delivery. The patient progressed through the 1st stage over 16 hours. AROM occured at 13:18 with clear fluid that then transitioned to meconium-stained. Pain was controlled with an epidural. She briefly was on a small amount of pitocin, however this was discontinued due to tachysystole. Shortly prior to complete dilation, HR was noted to be rising and the pt developed a fever. She was diagnosed with chorioamnionitis and initiated on Ampicillin and Gentamicin. The patient progressed through the 2nd stage over 3 hours. Due to maternal exhaustion with rising heart tones, the decision was made to proceed with vacuum-assisted vaginal delivery. Patient was evaluated and noted to have adequate pain control. Patient counseled on risks/benefits/alternatives of vacuum assisted delivery. Risks were discussed and they included but were not limited to a need for an episiotomy, pressure gonzalez on the baby, lacerations to the baby's scalp/face, serious damage including skull fracture, the need to proceed with an abdominal procedure, , paralysis of the baby's arms and/or legs, neurological impairment of the baby. Alternatives would include CS or further pushing. Questions were answered and the patient verbalized an understanding and decided to proceed. Cervix completely dilated and maternal bladder emptied. Maternal pelvis was noted to be adequate. Vertex presentation in the OP position and +2 station. Moulding present, Caput present Vacuum cup of the Kiwi OmniCup applied to the flexion point without difficulty and during contractions, pressure applied between 400-600 mmHg as indicated in the green zone of the pressure gauge. Infant delivered after 3 contractions with 0 pop-offs over an intact perineum. Total duration of application of the vacuum was 5 minutes. The anterior shoulder and remainder of the was delivered without difficulty at 00:56. Cord clamped and cut after it stopped pulsating. APGARS 7/9. was examined and no evidence of injury noted. The placenta delivered with gentle cord traction, and appeared complete. The perineum and vagina were inspected with 2nd degree perineal laceration with 2-O Vicryl in the usual fashion. Needle and sponge counts were correct.? The vagina was inspected and no items were left in situ. Ada was doing well with [place], her and her , Spenser, at bedside. PREPROCEDURE DIAGNOSIS: Intrauterine at 36w6d GBS negative RH positive Chorioamnionitis POSTPROCEDURE DIAGNOSIS: Intrauterine at 36w6d, delivered Same as preprocedure Maternal exhaustion Vacuum-assisted vaginal delivery [place] Baby 1: gender: Female Presentation: vertex Position: Right Occiput Anterior Placenta delivery description: Spontaneous Cord Vessel Description: 3 Vessels score (1 min): 7 score (5 min): 9 weight: 6 lb 13.349 oz Plan for aftercare: Routine care and Other (continue antibiotics until afebrile for 24hrs)
[2024-10-25] MEDS: IBUPROFEN 600 MG TABLET PO ×4 (03:10→23:15)
[2024-10-25] MEDS: WITCH HAZEL/GLYCERIN PADS 1 EACH TOP (03:11)
[2024-10-25] MEDS: DERMOPLAST SPRAY 20% 60 ML 1 SPRAY TOP (03:11)
[2024-10-25] MEDS: AMPICILLIN 2,000 MG in SODIUM CHLORIDE 0.9% 100 ML 200 MG IV ×4 (03:50→23:31)
[2024-10-25] MEDS: ACETAMINOPHEN 325 MG TABLET 650 MG PO ×3 (05:42→19:39)
[2024-10-25] MEDS: OXYCODONE IR 5 MG TABLET PO ×3 (05:42→23:18)
[2024-10-25] MEDS: FERROUS SULFATE 325 MG TABLET PO (08:27)
[2024-10-25] MEDS: PRENATAL VIT,CALC/IRON/FOLIC 1 TABLET 1 TAB PO (08:27)
[2024-10-25] MEDS: DOCUSATE 100 MG CAPSULE PO (08:27)
[2024-10-26] MEDS: ACETAMINOPHEN 325 MG TABLET 650 MG PO ×2 (02:11→11:19)
[2024-10-26 05:50] LABS: Add Manual Diff / Slide Review NO; Basophils Absolute Auto 100 /uL (0-100); Basophils Percent Auto 0.4 % (0-2); Eosinophils Absolute Auto 200 /uL (0-450); Eosinophils Percent Auto 0.9 % (2-4); Hematocrit 25.2 % (36-46); Hemoglobin 8.1 g/dL (12.0-16.0); Lymphocytes Absolute Auto 2600 /uL (1100-4500); Lymphocytes Percent Auto 14.4 % (25-40); Mean Corpuscular HGB Conc 32.2 % (30-36); Mean Corpuscular Hemoglobin 25.8 PG (26-34); Mean Corpuscular Volume 80.4 fL (80-100); Monocytes Absolute Auto 1100 /uL (0-900); Monocytes Percent Auto 6.1 % (3-14); Neutrophils Absolute Auto 14100 /uL (1500-7000); Neutrophils Percent Auto 78.2 % (50-75); Platelet Count 271 X10^3/uL (150-400); Red Blood Cell Count 3.14 X10^6/uL (4.0-5.2); Red Cell Distribution Width 14.6 % (11.6-14.8)
[2024-10-26] MEDS: IBUPROFEN 600 MG TABLET PO (05:52)
[2024-10-26] MEDS: WITCH HAZEL/GLYCERIN PADS 1 EACH TOP (05:58)
[2024-10-26 10:21] VITALS: BP 106/75; PULSE 69; RESP 18; TEMP 36.8
[2024-10-26 11:19] VITALS: TEMP 36.8
[2024-10-26] MEDS: FERROUS SULFATE 325 MG TABLET PO (11:19)
[2024-10-26] MEDS: PRENATAL VIT,CALC/IRON/FOLIC 1 TABLET 1 TAB PO (11:19)
[2024-10-26] MEDS: DOCUSATE 100 MG CAPSULE PO (11:19)
--- NOTE | 2024-10-28 13:03 | PM.OBDS.1 ---
Discharge Providers Provider Date of admission: 10/24/24 00:37 Discharge Date: 10/28/24 Primary care physician: ARELIS Barton Consults: 10/26/24 01:37 Consult to Sterile Process Tech Routine Comment: Discharge provider: Nicolle Phillip MD Summary Hospital Course Diagnoses: 36w6d gestation GBS negative Rh positive Chorioamnionitis Vacuum-assisted vaginal delivery Hospital Course: The pt presented in early labor. She received an epidural for pain control. AROM was performed with clear fluid present that changed to meconium-stained with time. She was noted to have a fever with rising FHT, and was initiated on antibiotics for chorioamnionitis. She progressed to complete. After pushing for 3hrs and due to further rising FHT, the decision was made to proceed with vacuum-assisted . The pt delivered a viable baby girl without additional complications. A 2nd degree perineal laceration was then repaired. She remained afebrile after delivery, and antibiotics were continued for 24hrs. , there were no complications. At the time of discharge she was voiding, ambulating, and passing flatus without difficulty. Her lochia was decreasing appropriately. Her pain was well controlled. She was and formula supplementing. She will f/u in 6 weeks for check. She would like OCPs for contraception. Peripartum Data Delivery Method: Assisted Delivery (vacuum) Laceration Description: Perineal - 2nd Degree Episiotomy description: None Procedures: Vacuum-assisted vaginal delivery complications: none [place] 1: Gender: Female Disposition of : home Time Spent with Patient Time attestation: Total time spent providing and/or coordinating discharge services: Objective Labs 10/26/24 05:33 Exam Narrative Exam Narrative: Gen: NAD, sitting comfortably in bed, appears well CV: RRR, no murmurs Resp: clear to auscultation bilaterally Abd: soft, appropriately tender, fundus firm and below the umbilicus, nondistended Ext: no edema Discharge Plan Discharge Plan Patient Disposition: Home Discharge orders & Medications Prescriptions: Continued vit-ferrous sulfat-FA 27 mg iron- 0.8 mg tablet 1 tab PO DAILY cholecalciferol (vitamin D3) 50 mcg (2,000 unit) capsule 50 mcg PO DAILY omega 1-evd-kns-fish oil [Fish Oil] 1,200 (144-216) mg capsule 1 cap PO DAILY Discontinued ondansetron 4 mg tablet,disintegrating 4 mg PO Q6H PRN (Reason: nausea and vomiting) Qty: 30 3RF ondansetron 4 mg tablet,disintegrating 4 mg PO Q8H PRN (Reason: nausea and vomiting) Qty: 20 0RF Follow up/Referrals: Nicolle Phillip MD [Physician] - 6 Weeks (6 week post appt with Dr. Phillip on 12/06/24 @1400) Norah Davis, SLICING MACHINE OPERATOR/TENDER-C [Primary Care Provider] - Diet/Activity/Treatments Diet: Diet as Tolerated and Regular Skin/Wound/Dressing Care Report to your healthcare provider any signs of infection, such as:: chills, fever, increased pain and unusual drainage Visit Report/Discharge Packet Stand Alone Forms: Discharge: Care, Patient Portal/API, Stroke Signs & Symptoms Discharge Data Primary Care Provider: Norah Davis Discharges patient from system. Discharge Date/Time: 10/26/24 12:03
== END 2024-10-26 12:03 | disposition home or self-care (01) | DRG 805 ==
PROVIDERS: Admitting Provider Family Medicine; PCP Nurse Practitioner Family; Referring Provider Family Medicine; Visit Provider Family Medicine
DX: O60.14X0 Preterm labor third trimester with preterm delivery third trimester, not applicable or unspecified (principal); O41.1230 Chorioamnionitis, third trimester, not applicable or unspecified; Z37.0 Single live birth; O63.1 Prolonged second stage (of labor); O76 Abnormality in fetal heart rate and rhythm complicating labor and delivery; O70.1 Second degree perineal laceration during delivery; O75.81 Maternal exhaustion complicating labor and delivery; Z3A.36 36 weeks gestation of pregnancy
CPT/HCPCS: 36415; 59050; 59400; 85025; 86850; 86900; 86901; G0379; J0290; J2270; J2405; J2590; J3010; J3410

== ENCOUNTER 2024-10-27 22:12 | Emergency (ER) | payer OTHER, SELFPAY ==
[2024-10-27 22:41] VITALS: BP 129/75; PULSE 73; RESP 16; TEMP 36.7; O2SAT 99; BMI 21.4
[2024-10-27] MEDS: SODIUM CHLORIDE 0.9% 1,000 ML 1000 ML IV (23:18)
[2024-10-27] MEDS: diphenhydrAMINE 50 MG/ML VIAL 25 MG IV (23:18)
[2024-10-27] MEDS: PROCHLORPERAZINE 10 MG/2 ML VIAL IV (23:19)
[2024-10-27] MEDS: DEXAMETHASONE 10 MG/ML VIAL IV (23:21)
[2024-10-27] MEDS: KETOROLAC 30 MG/ML VIAL 15 MG IV (23:21)
--- NOTE | 2024-10-28 00:04 | ED_ITS ---
HPI - Headache General Chief Complaint: Headache Stated Complaint: spiltting headache s/p epidural Time Seen by Provider: 10/28/24 00:04 Mode of arrival: Ambulatory History of Present Illness HPI Narrative: 24-year-old female without any significant past medical history presents to the emergency department for headache. To note patient just had epidural on 10/24/2024 due to giving . She states that the headache is worse with standing up better with lying down she denies any visual disturbances she denies any symptoms such as chest pain shortness breath fever chills nausea vomiting abdominal pain or any other GI/ symptoms time. She states that she was informed that this could be a possible complication and if she starts developing a headache to come to the emergency department. At time of evaluation patient NIH of 0 no focal deficits Related Data Home Medications Medication Instructions Recorded Confirmed cholecalciferol (vitamin D3) 50 50 mcg PO DAILY 03/10/24 10/24/24 mcg (2,000 unit) capsule omega 9-oox-fww-fish oil 1,200 mg 1 cap PO DAILY 03/10/24 10/24/24 (144 mg-216 mg) capsule (Fish Oil) vitamin-ferrous sulfate 1 tab PO DAILY 03/10/24 10/24/24 27 mg iron-folic acid 0.8 mg tablet Allergies Allergy/AdvReac Type Severity Reaction Status Date / Time No Known Drug Allergies Allergy Unverified 10/21/24 10:23 Review of Systems Review of Systems Narrative: General: Denies fever, chills, weight loss HEENT: Positive headache, denies eye drainage, eye irritation, head trauma, sore throat, voice change Cardiovascular: Denies any chest pain, palpitations, tachycardia Respiratory: Denies any shortness of breath, cough, wheeze, stridor GI/: Denies any abdominal pain, nausea, vomiting, diarrhea, bright red blood per rectum, melanotic stools, urinary frequency, urinary retention, dysuria, hematuria MSK: Denies any joint pain, muscle pains, swelling Skin: Denies any rashes, lesions, discoloration Neuro: Denies any headache, lightheadedness, dizziness, fainting, weakness Psych: Denies SI/HI Patient History Surgical History [place] teeth extracted (~2023) Family History Mother Thyroid disorder Grandfather Diabetes mellitus Grandmother Hypertension Hyperlipidemia Diabetes mellitus Social History marital status: number of children: 0 household members: spouse lives independently: Yes caregiver/support person: No housing: apartment pets and animals: Yes (cat, aware of precautions) education level: college 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: Yes (discussed) special phong needs: No travel history: recent (domestic only) seatbelt use: always water heater temp set < 120 deg: Yes working smoke detector in home: Yes fire extinguisher in home: Yes carbon monox detector in home: Yes firearms in home: Yes firearms unloaded and locked: Yes do you feel safe at home: Yes Smoking Status: Never smoker second hand exposure: No alcohol intake: former (very occasionally when not ) substance use type: does not use during the past year weight has: remained stable well-balanced diet: about half the time daily servings fruits/ve-4 caffeine: Yes (aware of 200mg limit) Type(s) of exercise: none Smoking Status: Never smoker Exam Narrative Exam Narrative: General: Cooperative, comfortable, well-developed, not in acute distress HEENT: Normocephalic, atraumatic, PERRLA, normal sclera, eyelids normal, Neck: Active full range of motion, atraumatic Chest: Normal to inspection, negative crepitus, no overlying erythema ecchymosis Respiratory: Normal respiratory effort, not in acute respiratory distress, clear to auscultation bilaterally negative cough, wheeze, tachypnea, rhonchi, rales Cardiology: Regular rate rhythm negative gallop, murmur, rubs GI/: Normal to inspection, soft, nonrigid, no tenderness to palpation, exam deferred MSK: Full range of active range of motion of all 4 extremities, atraumatic, there is no tenderness to palpation of the cervical thoracic lumbar spine, the site at which patient had epidural is well-appearing there is no hematoma there is no overlying erythema there is no streaking there is no other signs of infection Skin: No rashes lesions noted Neuro: NIH of 0 no focal deficits Alert awake oriented x3, moves all 4 extremities spontaneously, cranial nerves intact, able to answer all questions appropriately follows commands appropriately Psych: Cooperative, negative suicidal or homicidal ideations Initial Vital Signs Initial Vital Signs: Vital Signs Temperature 98.1 F 10/27/24 22:41 Pulse Rate 73 10/27/24 22:41 Respiratory Rate 16 10/27/24 22:41 Blood Pressure 129/75 10/27/24 22:41 Pulse Oximetry 99 10/27/24 22:41 Oxygen Delivery Method Room Air 10/27/24 22:41 Course Orders Ordered: Discontinued Medications Dexamethasone (Dexamethasone 10 Mg/Ml Vial) 10 mg IV NOW ONE Stop: 10/27/24 23:08 Last Admin: 10/27/24 23:21 Dose: 10 mg Documented By: Diphenhydramine HCl (Diphenhydramine 50 Mg/Ml Vial) 25 mg IV NOW ONE Stop: 10/27/24 23:08 Last Admin: 10/27/24 23:18 Dose: 25 mg Documented By: Sodium Chloride (Normal Saline 0.9%) 1,000 mls @ 1,000 mls/hr IV BOLUS ONE Stop: 10/28/24 00:06 Last Infusion: 10/28/24 00:38 Dose: Infused Documented By: Admin: 10/27/24 23:18 Dose: 1,000 mls/hr Documented By: Ketorolac Tromethamine (Ketorolac 30 Mg/Ml Vial) 15 mg IV NOW ONE Stop: 10/27/24 23:08 Last Admin: 10/27/24 23:21 Dose: 15 mg Documented By: Prochlorperazine (Prochlorperazine 10 Mg/2 Ml Vial) 10 mg IV NOW ONE Stop: 10/27/24 23:08 Last Admin: 10/27/24 23:19 Dose: 10 mg Documented By: Vital Signs Vital signs: Vital Signs - 8 hr 10/27/24 22:41 10/28/24 00:07 Temperature 98.1 F 97.8 F Pulse Rate 73 81 Respiratory Rate 16 20 Blood Pressure 129/75 104/59 L Pulse Oximetry 99 97 Oxygen Delivery Method Room Air Room Air MDM - Headache Differential Diagnosis Differential diagnosis: Likely migraine, tension headache and other (Post dural headache) MDM Narrative Medical decision making narrative: 24-year-old female presenting for post dural headache, had epidural on 10/24/2024 for her vaginal delivery of her child. On exam patient without any f ocal deficits NIH of 0, she states that her headache is worse with sitting up/ambulation better with lying down. On exam there is no overlying erythema cellulitis or gross deformity to the area of the recent epidural. Patient neurovascularly intact bilateral upper and lower extremities. Patient had Benadryl, Decadron, fluids, prochlorperazine with improvement of symptoms. Patient was instructed to follow up with her primary care doctor as well as the anesthesiologist for possible blood patching if needed in outpatient setting. Patient was given strict return precautions she verbalized understanding of this and agrees to being discharged home with outpatient follow up. She will be sent home with additional symptomatic relief Discharge Plan Departure Patient Disposition: Home Clinical Impression: Post-dural puncture headache Activity Restrictions/Additional Instructions: Please follow up with your anesthesiologist and your primary care doctor Please read the discharge instructions sheet carefully and bring all papers to all doctor follow-up visits, as it may contain information that your doctor may want to see. Disease processes change and evolve, if your symptoms worsen or if you develop any new symptoms that are concerning to you please return for evaluation. Your evaluation today does not show any evidence of any life- threatening/serious illnesses requiring admission to the hospital or surgery. Please follow-up with your doctor for re-evaluation in approximately 1 day. Seek immediate medical attention for any worrisome symptoms. *If you do not have a primary care provider please contact the [facility] Resource line at [phone]. They will ask some questions about your medical history and help get you set up with a doctor in the community. Prescriptions: No Action vit-ferrous sulfat-FA 27 mg iron- 0.8 mg tablet 1 tab PO DAILY cholecalciferol (vitamin D3) 50 mcg (2,000 unit) capsule 50 mcg PO DAILY omega 8-sqm-yph-fish oil [Fish Oil] 1,200 (144-216) mg capsule 1 cap PO DAILY Referrals: Norah Davis FNP-C [Primary Care Provider] - Stand Alone Forms: Patient Portal/API/Survey
[2024-10-28 00:07] VITALS: BP 104/59; PULSE 81; RESP 20; TEMP 36.6; O2SAT 97
--- NOTE | 2024-10-28 00:39 | PC.NURSE ---
Pt resting quietly with eyes closed, resps even and not labored. No distress noted at this time. Pt remains connected to blood pressure and pulse ox monitors with alarms on and audible. Call light within reach. and child remain at bedside.
== END 2024-10-28 01:42 | disposition home or self-care (01) ==
PROVIDERS: Emergency Provider Student in an Organized Health Care Education/Training Program; PCP Nurse Practitioner Family
DX: G97.1 Other reaction to spinal and lumbar puncture (principal)
CPT/HCPCS: 36415; 96361; 96374; 96375; 99284; J0780; J1100; J1200; J1885

== ENCOUNTER 2024-10-28 13:34 | Observation (INO) | payer OTHER, SELFPAY ==
--- NOTE | 2024-10-28 15:11 | PM.AN.REGBLK ---
Regional Block Pre-procedure PMH/ROS narrative: pt presents after ED and OB visit with FREY. Worsens when upright. Relief when flat. When sitting pain 10/10. When supine pain 2/10. PSH/Anesthesia history narrative: BOLA with PCEA 3/10 ASA Class: II Allergies: Allergies Allergy/AdvReac Type Severity Reaction Status Date / Time No Known Drug Allergies Allergy Unverified 10/28/24 10:34 --: 2nd provider available to sterile draw blood. prep L arm with chloraprep. placed on sterile towel. 20 g catheter inserted in dorsal l hand. withdrew 20 mL blood sterile. handed off to primary proceduralist. pt drape and prep with sterile technique. l3 l4 IS identified. skin wheel with 1% lido 3cc. tuohy introduced. SHARLA achieved at 3 cm. injected 5 cc blood at a time until pressure felt in both hips. total of 15 cc blood given. pt states immediate relief of FREY. 2 to 3/10. Procedure Insertion date: 10/28/24 Insertion time: 14:55 Prep/Local: betadine x3 (chloraprep) and 1% lidocaine Interspace: l3-l4 (below where BOLA was placed) Patient position: sitting Needle: 18 gauge Hustead Loss of resistance with: saline SHARLA at (cm): 3 Post-procedure Anesthesia date START: 10/28/24 Anesthesia time START: 14:51 Anesthesia date END: 10/28/24 Anesthesia time END: 14:56 Post-procedure Anesthesia Assessment: Yes CV function: HR/BP stable, Yes Resp function: RR/sat/airway adequate, Yes Post-op hydration adequate, Yes Pain control adequate, Yes Nausea & vomiting absent, Yes Temperature > 36 C and Yes Mental status appropriate
== END 2024-10-29 07:45 | disposition home or self-care (01) ==
PROVIDERS: Admitting Provider Family Medicine; PCP Nurse Practitioner Family; Referring Provider Family Medicine; Visit Provider Family Medicine
DX: G97.1 Other reaction to spinal and lumbar puncture (principal)
CPT/HCPCS: 62273; G0378; G0379; J3030